=== PATIENT | male | born 1995 | race Caucasian/White ===

== ENCOUNTER 2021-05-13 10:33 | Emergency (ER) | payer SELFPAY ==
[2021-05-13] MEDS ORDERED: Ketorolac 60 MG/2 ML SDV IM ONE (11:00)
--- NOTE | 2021-05-13 11:01 | EDM.PDOC ---
ED HPI GENERAL MEDICAL PROBLEM - General Chief Complaint: Respiratory Problem Stated Complaint: SEVERE CONGESTION, RUNNY NOSE Time Seen by Provider: 05/13/21 10:38 Source of Information: Reports: Patient History Limitations: Reports: No Limitations - History of Present Illness INITIAL COMMENTS - FREE TEXT/NARRATIVE: HISTORY AND PHYSICAL: History of present illness: The patient is a 26-year-old male who presents to the emergency room with complaints of fever, congestion, sore throat, shortness of breath, headache for the last 3 days. The patient states he was seen at a urgent care yesterday and had a negative COVID-19 test. The patient was concerned that the test could be incorrect. The patient states that he took Tylenol for his discomfort this morning. The patient recently has moved from [place] to [place] and wonders if the new environment is causing his infection. Patient denies any change in vision, syncope or near syncope. Denies any chest pain or back pain. Denies any abdominal pain, nausea, vomiting, diarrhea, constipation or dysuria. Has not noted any blood in urine or stool. Patient has been eating and drinking appropriately. Review of systems: As per history of present illness and below otherwise all systems reviewed and negative. Past medical history: As per history of present illness and as reviewed below otherwise noncontributo ry. Surgical history: As per history of present illness and as reviewed below otherwise noncontributory. Social history: See social history for further information Family history: As per history of present illness and as reviewed below otherwise noncontributory. Physical exam: General: Well developed and well nourished. Alert and orientated x 3. Nontoxic in appearance and in no acute distress. Vital signs are stable and have been reviewed by me. Nursing notes were reviewed. HEENT: Atraumatic, normocephalic, pupils equal and reactive bilaterally, negative for conjunctival pallor or scleral icterus, mucous membranes moist, TMs normal bilaterally, throat clear, neck supple, nontender, trachea midline. No drooling or trismus noted. No meningeal signs. No hot potato voice noted. Lungs: Clear to auscultation bilaterally. No wheezes, rales, or rhonchi. Chest nontender. Normal work of breathing, no accessory muscles used. Heart: S1S2, regular rate and rhythm without overt murmur, gallops, or rubs. No JVD. No peripheral edema Abdomen: Soft, nondistended, nontender. Normoactive bowel sounds. Negative for masses or costovertebral tenderness. Skin: Intact, warm, dry. No lesions or rashes noted. Hematologic: No petechiae or purpra. Mucosa appropriate color and normal nail bed color and refill. Extremities: Atraumatic, moves all extremities per self without difficulty or deficits, negative for cords or calf pain. Neurovascular unremarkable. Neuro: Awake, alert, oriented. Cranial nerves II through XII unremarkable. Cerebellum unremarkable. Motor and sensory unremarkable throughout. Exam nonfocal. Psychiatric: Mood and affect are appropriate. Normal thought process. Answering questions appropriately. Notes: *This patient was seen and evaluated during the 2019 SARS-CoV-2 novel coronavirus pandemic period. Community viral transmission is ongoing at time of this encounter and the emergency department is operating under pandemic response procedures. As stated above the patient is a 26-year-old male who presents to the emergency room with complaints of fever, congestion, sore throat, shortness of breath, headache for the last 3 days. He was seen at a urgent care yesterday and had a negative COVID-19 test, but is concerned the test could be incorrect. I informed the patient that we also do a quick turnaround COVID-19 swab. For today's purposes I have ordered a chest x-ray, strep swab, flu swab, and CBC and CMP. I will treat the patient discomfort with Toradol 60 mg IM. The patient CBC and CMP are unremarkable. The patient's flu swab was negative. The patient's chest x-ray IMPRESSION: No acute disease. The strep swab was negative. I have educated the patient that he most likely has a viral upper respiratory infection and this is treated symptomatically. I have educated the patient on symptomatic treatment. I have given the patient 2 days off of work. The patient is agreeable with this discharge plan. I have talked with the patient about today's findings, in addition to providing specific details for plan of care. Reassessment at the time of disposition demonstrates that the patient is in no acute distress. The patient is stable for discharge, counseling was provided and we discussed in great detail signs and symptoms that would prompt them to return to the Emergency Department. Medication, follow up and supportive care measures were reviewed and discussed. Voices understanding and is agreeable to plan of care. Denies any further questions or concerns at this time. Diagnostics: Chest x-ray, strep swab, flu swab, CBC, CMP Therapeutics: Toradol 60 mg IM Impression: Viral upper respiratory infection Plan: 1. You were evaluated today on an emergent basis. Your plaints of fever, headache, head and chest congestion were evaluated with blood work which was normal. A strep and flu swab was negative. Your chest x-ray was normal. You most likely have a viral upper respiratory infection. Treatment for this is treatment of the symptoms. You can use tea with honey for your cough and sore throat. Or you can use warm lemon water with honey. You can use any over the counter preparation, but be aware that most cough medicines are ineffective. I have given you a note to be off work for 2 days. If within 5 days you are not feeling better or starting to feel worse please return for possible further work-up. 2. You can alternate Tylenol and ibuprofen as needed for pain and fever management. 3. We encourage you to follow up with your primary care provider and/or recommended specialist in the next few days for re-evaluation and further care/management. 4. If your symptoms should worsen, new symptoms develop or any of the signs and symptoms we discussed should arise please return to the emergency room or call 911 (if needed). Definitive disposition and diagnosis as appropriate pending reevaluation and review of above. Treatments SOIL SAMPLER: Reports: Acetaminophen - Related Data Allergies Allergy/AdvReac Type Severity Reaction Status Date / Time No Known Allergies Allergy Verified 05/13/21 10:50 Home Meds: Home Meds . [No Known Home Meds] 05/13/21 [History] Past Medical History - Past Health History Medical/Surgical History: Denies Medical/Surgical History Social & Family History - Tobacco Use Tobacco Use Status *Q: Current Every Day Tobacco User Years of Tobacco use: 12 Packs/Tins Daily: 1 - Recreational Drug Use Recreational Drug Use: No ED ROS GENERAL - Review of Systems Review Of Systems: Comprehensive ROS is negative, except as noted in HPI. ED EXAM, GENERAL - Physical Exam Exam: See Below (See dictation) Course - Vital Signs Last Recorded V/S: Last Vital Signs Temp 98.2 F 05/13/21 12:48 Pulse 60 05/13/21 12:48 Resp 16 05/13/21 12:48 BP 116/56 L 05/13/21 12:48 Pulse Ox 95 05/13/21 12:48 - Orders/Labs/Meds Orders: Active Orders 24 hr Category Date Time Status Isolation [COMM] Routine Ot 05/13/21 11:01 Active Labs: Laboratory Tests 05/13/21 05/13/21 05/13/21 Range/Units 11:10 11:10 11:10 WBC 8.66 (4.0-11.0) K/uL RBC 4.60 (4.50-5.90) M/uL Hgb 13.4 (13.0-17.0) g/dL Hct 40.1 (38.0-50.0) % MCV 87.2 (80.0-98.0) fL MCH 29.1 (27.0-32.0) pg MCHC 33.4 (31.0-37.0) g/dL RDW Std Deviation 44.2 (28.0-62.0) fl RDW Coeff of Domenico 14 (11.0-15.0) % Plt Count 177 (150-400) K/uL MPV 12.20 H (7.40-12.00) fL Neut % (Auto) 59.1 (48.0-80.0) % Lymph % (Auto) 27.4 (16.0-40.0) % [place] % (Auto) 11.3 (0.0-15.0) % Eos % (Auto) 2.0 (0.0-7.0) % Baso % (Auto) 0.2 (0.0-1.5) % Neut # (Auto) 5.1 (1.4-5.7) K/uL Lymph # (Auto) 2.4 (0.6-2.4) K/uL [place] # (Auto) 1.0 H (0.0-0.8) K/uL Eos # (Auto) 0.2 (0.0-0.7) K/uL Baso # (Auto) 0.0 (0.0-0.1) K/uL Nucleated RBC % 0.0 /100WBC Nucleated RBCs # 0 K/uL Sodium 140 (136-148) mmol/L Potassium 4.2 (3.5-5.1) mmol/L Chloride 103 (98-107) mmol/L Carbon Dioxide 29.7 (21.0-32.0) mmol/L BUN 10 (7.0-18.0) mg/dL Creatinine 0.8 (0.8-1.3) mg/dL Est Cr Clr Drug Dosing 112.22 mL/min Estimated GFR (MDRD) > 60.0 ml/min Glucose 104 (74-106) mg/dL Calcium 8.4 L (8.5-10.1) mg/dL Total Bilirubin 0.4 (0.2-1.0) mg/dL AST 23 (15-37) IU/L ALT 24 (14-63) IU/L Alkaline Phosphatase 60 (46-116) U/L Total Protein 6.8 (6.4-8.2) g/dL Albumin 3.7 (3.4-5.0) g/dL Globulin 3.1 (2.6-4.0) g/dL Albumin/Globulin Ratio 1.2 (0.9-1.6) Group A Strep (PCR) NOT DETECTED (NOT DETECT) Meds: Medications Discontinued Medications Generic Name Dose Route Start Last Admin Trade Name Freq PRN Reason Stop Dose Admin Ketorolac Tromethamine 60 mg 05/13/21 11:00 05/13/21 11:22 Ketorolac 60 Mg/2 Ml Sdv IM 05/13/21 11:01 60 mg ONETIME ONE Administration Departure - Departure Time of Disposition: 12:33 Disposition: Home, Self-Care 01 Condition: Good Clinical Impression: Viral upper respiratory illness - Discharge Information *PRESCRIPTION DRUG MONITORING PROGRAM REVIEWED*: Not Applicable *COPY OF PRESCRIPTION DRUG MONITORING REPORT IN PATIENT GREGORIA: Not Applicable Instructions: Viral Respiratory Infection Referrals: PCP,None [Primary Care Provider] - Forms: ED Department Discharge Additional Instructions: The following information is given to patients seen in the emergency department who are being discharged to home. This information is to outline your options for follow-up care. We provide all patients seen in our emergency department with a follow-up referral. The need for follow-up, as well as the timing and circumstances, are variable depending upon the specifics of your emergency department visit. If you don't have a primary care physician on staff, we will provide you with a referral. We always advise you to contact your personal physician following an emergency department visit to inform them of the circumstance of the visit and for follow-up with them and/or the need for any referrals to a consulting specialist. The emergency department will also refer you to a specialist when appropriate. This referral assures that you have the opportunity for follow-up care with a specialist. All of these measure are taken in an effort to provide you with optimal care, which includes your follow-up. Under all circumstances we always encourage you to contact your private physician who remains a resource for coordinating your care. When calling for follow-up care, please make the office aware that this follow-up is from your recent emergency room visit. If for any reason you are refused follow-up, please contact the [facility] Emergency Department at and asked to speak to the emergency department charge nurse. [facility] [address] [place] [id number] [facility] [address] [place] [id number] Plan: 1. You were evaluated today on an emergent basis. Your plaints of fever, headache, head and chest congestion were evaluated with blood work which was normal. A strep and flu swab was negative. Your chest x-ray was normal. You most likely have a viral upper respiratory infection. Treatment for this is treatment of the symptoms. You can use tea with honey for your cough and sore throat. Or you can use warm lemon water with honey. You can use any over the counter preparation, but be aware that most cough medicines are ineffective. I have given you a note to be off work for 2 days. If within 5 days you are not feeling better or starting to feel worse please return for possible further work-up. 2. You can alternate Tylenol and ibuprofen as needed for pain and fever management. 3. We encourage you to follow up with your primary care provider and/or recommended specialist in the next few days for re-evaluation and further care/management. 4. If your symptoms should worsen, new symptoms develop or any of the signs and symptoms we discussed should arise please return to the emergency room or call 911 (if needed). Sepsis Event Note (ED) - Evaluation Sepsis Screening Result: No Definite Risk - My Orders Last 24 Hours: My Active Orders 05/13/21 11:01 Isolation [COMM] Routine - Assessment/Plan Last 24 Hours: My Active Orders 05/13/21 11:01 Isolation [COMM] Routine
--- NOTE | 2021-05-13 11:44 | CR ---
HISTORY: Cough and shortness of breath. TECHNIQUE: Two views of the chest. COMPARISON: No prior. FINDINGS: No acute lung infiltrate or pulmonary edema. No pneumothorax or pleural effusion. Cardiac size and pulmonary vasculature within normal limits. Slight leftward curvature of the thoracic spine. IMPRESSION: No acute disease. Dictated by Carrington Tesfaye MD @ 05/13/2021 11:43:06 AM (Electronically Signed)
[2021-05-13 12:17] LABS: BLOOD UREA NITROGEN,BUN 10 mg/dL (7.0-18.0); CARBON DIOXIDE,CO2 29.7 mmol/L (21.0-32.0); CHLORIDE,CL 103 mmol/L (98-107); GLUCOSE RANDOM 104 mg/dL (74-106); POTASSIUM,K 4.2 mmol/L (3.5-5.1); SODIUM,NA 140 mmol/L (136-148)
== END 2021-05-13 12:50 | disposition home or self-care (01) ==
LOC: MW.ED 10:33
DX: J06.9 Acute upper respiratory infection, unspecified (principal); Z72.0 Tobacco use
CPT/HCPCS: 36415; 71046; 80053; 85025; 87651; 87804; 96372; 99283; J1885